=== PATIENT | male | born 1955 | race Caucasian/White ===

== ENCOUNTER 2025-06-27 13:18 | Inpatient (IN) | payer MEDICARE, OTHER ==
[2025-06-27] VITALS (7 sets, daily range): BP systolic 112–160; BP diastolic 73–96; TEMP 97.9–98.1; O2SAT 98–100
[~2025-06-27] VITALS: Ht 167.6 cm; Wt 78.9 kg
[2025-06-27] MEDS: IV NS 0.9% 500 ML BAG IV ONE (13:51)
[2025-06-27 14:25] LABS: CALCIUM, SERUM 8.8 mg/dL (8.5-10.1); CREATININE 2.0 mg/dL (0.6-1.3); SODIUM SERUM 136 mmol/L (136-145); UREA NITROGEN, BLOOD 32 mg/dL (7-18)
[2025-06-27 14:30] LABS: ASPARTATE AMINOTRANSFERASE 11 U/L (15-37); TOTAL PROTEIN, SERUM 8.2 g/dL (6.4-8.2)
[2025-06-27] MEDS ORDERED: ASPI-1169 PO (14:32)
[2025-06-27] MEDS ORDERED: BACL10TA PO (14:32)
[2025-06-27] MEDS ORDERED: ATOR40TA PO (14:32)
[2025-06-27] MEDS ORDERED: SENN-261 PO (14:32)
[2025-06-27] MEDS ORDERED: QUET50TA PO (14:32)
[2025-06-27] MEDS ORDERED: LIDO700A30 TP (14:32)
[2025-06-27] MEDS ORDERED: METF-442 PO (14:32)
[2025-06-27] MEDS ORDERED: LEVE750T10 PO (14:32)
[2025-06-27] MEDS ORDERED: THIA100T74 PO (14:32)
[2025-06-27] MEDS ORDERED: GABA-532 PO (14:32)
[2025-06-27] MEDS ORDERED: MELA3TAB41 PO (14:32)
[2025-06-27] MEDS ORDERED: GUAI100S9 PO (14:32)
[2025-06-27] MEDS ORDERED: ACET325T53 PO (14:32)
[2025-06-27] MEDS ORDERED: TAMS-12 PO (14:32)
[2025-06-27] MEDS ORDERED: FINA5TAB11 PO (14:32)
[2025-06-27] MEDS ORDERED: LOSA50TA39 PO (14:32)
[2025-06-27] MEDS: IV NS 0.9% 1,000 ML BAG IV ONE (14:52)
[2025-06-27 14:53] LABS: INR 0.99 (0.91-1.10)
[2025-06-27 14:58] LABS: LACTIC ACID 3.4 mmol/L (0.4-2.0)
[2025-06-27] MEDS: PIPERACILLIN /TAZOBACTAM 3.375 G in IV D5W 50 ML IV ONE (15:00)
[2025-06-27] MEDS: VANCOMYCIN 1 GM in IV D5W 250 ML IV ONE (15:30)
[2025-06-27 15:33] LABS: PLATELET COUNT (AUTO) 238 K/uL (150-450); RED BLOOD CELL COUNT(AUTO) 4.28 MIL/uL (4.5-6.0); RED CELL DISTRIBUTION WIDTH 15.4 % (11.5-15.0); WHITE BLOOD COUNT (AUTO) 8.3 K/uL (4.3-11.0)
[2025-06-27 16:01] LABS: APPEARANCE,URINE CLEAR (CLEAR); BLOOD, URINE Small Ery/uL (NEGATIVE); LEUKOCYTE ESTERASE ,URINE Trace (NEGATIVE); UGLUCOSE 500 MG/DL mg/dL (NEGATIVE)
[2025-06-27 16:02] LABS: NITRITE, URINE POSITIVE (NEGATIVE)
[2025-06-27 16:03] LABS: ADD URINE CULTURE YES
[2025-06-27] MEDS ORDERED: LIDOCAINE 5% (PATCH) 1 EA PATCH TP PRN (17:30)
[2025-06-27] MEDS ORDERED: DEXTROSE 50%-WATER 50 ML DISP.SYRIN IV PRN (17:30)
[2025-06-27] MEDS ORDERED: SENNOSIDES 8.6 MG TABLET PO PRN (17:30)
[2025-06-27] MEDS ORDERED: MAG HYDROX/AL HYDROX/SIMETH 30 ML UDC PO PRN (17:30)
[2025-06-27] MEDS ORDERED: GUAIFENESIN 300 MG/15 ML UDC PO PRN (17:30)
[2025-06-27] MEDS ORDERED: MAGNESIUM HYDROXIDE 30 ML UDC PO PRN (17:30)
[2025-06-27] MEDS ORDERED: ONDANSETRON HCL/PF 4 MG/2 ML VIAL IVP PRN (17:30)
[2025-06-27] MEDS ORDERED: Z GUARD REMEDY 4 OZ OINT TP PRN (17:30)
[2025-06-27] MEDS: IV NS 0.9% 1,000 ML IV SCH (18:14)
[2025-06-27] MEDS: BLOOD SUGAR DIAGNOSTIC 1 EACH STRIP VI SCH (18:23)
[2025-06-27] MEDS: CEFTRIAXONE 1 G in IV D5W 50 ML IV SCH (20:10)
[2025-06-27] MEDS: LEVETIRACETAM (500MG) 1,000 MG in IV NS 0.9% 90 ML IV ONE (21:30)
[2025-06-27] MEDS: TAMSULOSIN 0.4 MG CAP.SR.24H PO SCH (22:00)
[2025-06-27] MEDS ORDERED: LEVETIRACETAM (500MG) 500 MG/5 ML VIAL IV ONE (22:04)
[2025-06-27] MEDS: LORAZEPAM INJ 2 MG/ML VIAL IV PRN (22:18)
[2025-06-27 23:29] LABS: PLATELET COUNT (AUTO) 217 K/uL (150-450); RED BLOOD CELL COUNT(AUTO) 3.91 MIL/uL (4.5-6.0); RED CELL DISTRIBUTION WIDTH 15.2 % (11.5-15.0); WHITE BLOOD COUNT (AUTO) 9.3 K/uL (4.3-11.0)
[2025-06-27 23:40] LABS: CALCIUM, SERUM 7.9 mg/dL (8.5-10.1); CREATININE 1.9 mg/dL (0.6-1.3); PHOSPHORUS 2.9 mg/dL (2.5-4.9); SODIUM SERUM 140.0 mmol/L (136-145); UREA NITROGEN, BLOOD 26.0 mg/dL (7-18)
[2025-06-27] MEDS: *INSULIN REGULAR(HUMULIN R)HUM 100 UNIT/ML VIAL SQ PRN (23:45)
[2025-06-28] VITALS: BP 148/88; TEMP 98.8; O2SAT 99
[2025-06-28 04:00] VITALS: BP 139/70; TEMP 98.8; O2SAT 96
[2025-06-28] MEDS: INSULIN REGULAR, HUMAN 100 UNIT/ML 3 ML VIAL SQ PRN (06:31)
[2025-06-28 07:40] LABS: PLATELET COUNT (AUTO) 214 K/uL (150-450); RED BLOOD CELL COUNT(AUTO) 4.42 MIL/uL (4.5-6.0); RED CELL DISTRIBUTION WIDTH 15.1 % (11.5-15.0); WHITE BLOOD COUNT (AUTO) 9.8 K/uL (4.3-11.0)
[2025-06-28 08:00] VITALS: BP 172/81; TEMP 97.9; O2SAT 100
[2025-06-28 08:21] LABS: CALCIUM, SERUM 8.7 mg/dL (8.5-10.1); CREATININE 1.6 mg/dL (0.6-1.3); PHOSPHORUS 2.4 mg/dL (2.5-4.9); SODIUM SERUM 139.0 mmol/L (136-145); UREA NITROGEN, BLOOD 21.0 mg/dL (7-18)
[2025-06-28] MEDS ORDERED: LEVETIRACETAM (250 MG) 250 MG TABLET PO SCH (09:00)
[2025-06-28] MEDS: ASPIRIN 81 MG TAB.CHEW PO SCH (09:10)
[2025-06-28] MEDS: FINASTERIDE (5 MG) 5 MG TABLET PO SCH (09:10)
[2025-06-28] MEDS: LEVETIRACETAM (250 MG) 250 MG TABLET PO SCH (09:10)
[2025-06-28] MEDS: GABAPENTIN 100 MG CAPSULE PO SCH (09:10)
[2025-06-28] MEDS: QUETIAPINE FUMARATE 25 MG TABLET PO SCH (09:11)
[2025-06-28 11:00] VITALS: BP 161/90; TEMP 97.9; O2SAT 100
[2025-06-28 16:00] VITALS: BP 152/82; TEMP 99.1; O2SAT 100
[2025-06-28] MEDS: K PHOS NEUTRAL 250 MG TABLET PO ONE (16:46)
[2025-06-28 16:59] LABS: CREATININE, URINE 53.9 MG/DL (30.0-125.0); URINE SODIUM, RANDOM 151.0 mmol/l (40-220); URINE TOTAL PROTEIN 154.9 mg/dL (0-11.9)
[2025-06-28 20:00] VITALS: BP 163/107; TEMP 98.1; O2SAT 100
[2025-06-28] MEDS: LORAZEPAM INJ 2 MG/ML VIAL IV PRN (20:15)
[2025-06-29] VITALS (13 sets, daily range): BP systolic 131–175; BP diastolic 72–89; TEMP 98.2–98.6; O2SAT 93–99
[2025-06-29 06:58] LABS: PLATELET COUNT (AUTO) 217 K/uL (150-450); RED BLOOD CELL COUNT(AUTO) 4.04 MIL/uL (4.5-6.0); RED CELL DISTRIBUTION WIDTH 15.0 % (11.5-15.0); WHITE BLOOD COUNT (AUTO) 8.8 K/uL (4.3-11.0)
[2025-06-29 07:01] LABS: CREATINE KINASE, TOTAL 128.0 U/L (39-308)
[2025-06-29 07:20] LABS: ASPARTATE AMINOTRANSFERASE 13.0 U/L (15-37); CALCIUM, SERUM 8.6 mg/dL (8.5-10.1); CREATININE 1.3 mg/dL (0.6-1.3); PHOSPHORUS 2.7 mg/dL (2.5-4.9); SODIUM SERUM 139.0 mmol/L (136-145); TOTAL PROTEIN, SERUM 7.9 g/dL (6.4-8.2); UREA NITROGEN, BLOOD 20.0 mg/dL (7-18)
[2025-06-29] MEDS: LORAZEPAM INJ 2 MG/ML VIAL IV PRN ×2 (12:31)
[2025-06-29] MEDS: LEVETIRACETAM (500MG) 1,500 MG in IV NS 0.9% 85 ML IV SCH (15:26)
[2025-06-29] MEDS ORDERED: LEVETIRACETAM (250 MG) 250 MG TABLET PO SCH (17:00)
[2025-06-29] MEDS: IV NS 0.9% 1,000 ML IV PRN (17:41)
[2025-06-29] MEDS: LACOSAMIDE 200 MG in IV NS 0.9% 100 ML IV ONE (18:13)
[2025-06-29] MEDS ORDERED: LEVETIRACETAM (500MG) 1,500 MG in IV NS 0.9% 85 ML IV SCH (21:00)
[2025-06-29] MEDS: LACOSAMIDE 100 MG in IV NS 0.9% 50 ML IV SCH (21:50)
[2025-06-30] VITALS (17 sets, daily range): BP systolic 115–170; BP diastolic 66–94; TEMP 98.2–98.6; O2SAT 92–100
[2025-06-30 05:14] LABS: PLATELET COUNT (AUTO) 211 K/uL (150-450); RED BLOOD CELL COUNT(AUTO) 4.10 MIL/uL (4.5-6.0); RED CELL DISTRIBUTION WIDTH 15.5 % (11.5-15.0); WHITE BLOOD COUNT (AUTO) 8.1 K/uL (4.3-11.0)
[2025-06-30 05:16] LABS: CALCIUM, SERUM 8.7 mg/dL (8.5-10.1); CREATININE 1.5 mg/dL (0.6-1.3); SODIUM SERUM 142.0 mmol/L (136-145); UREA NITROGEN, BLOOD 17.0 mg/dL (7-18)
[2025-06-30 06:07] LABS: PTH, INTACT 46 pg/mL (15-65)
[2025-06-30] MEDS: LOSARTAN POTASSIUM 50 MG TABLET PO SCH (11:46)
[2025-06-30] MEDS: CLONIDINE HCL 0.1 MG TABLET PO PRN (17:41)
[2025-07-01 06:00] VITALS: BP 156/99; TEMP 98.6
[2025-07-01 07:22] LABS: PLATELET COUNT (AUTO) 219 K/uL (150-450); RED BLOOD CELL COUNT(AUTO) 3.88 MIL/uL (4.5-6.0); RED CELL DISTRIBUTION WIDTH 14.8 % (11.5-15.0); WHITE BLOOD COUNT (AUTO) 6.8 K/uL (4.3-11.0)
[2025-07-01 07:35] LABS: CALCIUM, SERUM 8.5 mg/dL (8.5-10.1); CREATININE 1.3 mg/dL (0.6-1.3); SODIUM SERUM 145.0 mmol/L (136-145); UREA NITROGEN, BLOOD 17.0 mg/dL (7-18)
[2025-07-01] MEDS: LACOSAMIDE 50 MG TABLET PO SCH (08:46)
[2025-07-01] MEDS: LEVETIRACETAM (250 MG) 250 MG TABLET PO SCH (08:48)
[2025-07-01] MEDS: ACETAMINOPHEN 325 MG TABLET PO PRN (10:39)
[2025-07-01] MEDS ORDERED: MEROPENEM 500 MG in IV NS 0.9% 50 ML IV SCH (21:00)
[2025-07-01] MEDS ORDERED: MEROPENEM 500 MG VIAL IV ONE (21:32)
[2025-07-01] MEDS: MEROPENEM 500 MG in IV NS 0.9% 50 ML IV SCH (21:49)
[2025-07-02] VITALS: BP 172/89; TEMP 97.6; O2SAT 97
[2025-07-02 04:00] VITALS: BP 144/82; TEMP 98.6; O2SAT 97
[2025-07-02] MEDS ORDERED: LEVE250T2 PO (09:10)
[2025-07-02] MEDS ORDERED: LACO50TA2 PO (09:10)
[2025-07-02] MEDS ORDERED: MERO500V23 IV (09:14)
[2025-07-02] MEDS: hydrALAZINE HCL IV 20 MG VIAL IV PRN (17:44)
[2025-07-02] MEDS: MEROPENEM 500 MG in IV NS 0.9% 50 ML IV SCH (17:44)
[2025-07-02 20:00] VITALS: BP 147/78; TEMP 98.1; O2SAT 96
[2025-07-03 14:55] VITALS: BP 190/105
== END 2025-07-03 15:34 | DRG 689 ==
LOC: ER 13:20 → MED 17:04 → TELE 22:39 → ICU 06-29 15:52 → TELE 06-30 15:07
PROVIDERS: ADMIT Internal Medicine; ATTEND Internal Medicine
DX: N39.0 Urinary tract infection, site not specified (principal); G93.41 Metabolic encephalopathy; N17.0 Acute kidney failure with tubular necrosis; Z16.12 Extended spectrum beta lactamase (ESBL) resistance; N40.1 Benign prostatic hyperplasia with lower urinary tract symptoms; Z79.82 Long term (current) use of aspirin; Z20.822 Contact with and (suspected) exposure to COVID-19; D64.9 Anemia, unspecified; K57.30 Diverticulosis of large intestine without perforation or abscess without bleeding; E83.89 Other disorders of mineral metabolism; Z79.84 Long term (current) use of oral hypoglycemic drugs; N13.8 Other obstructive and reflux uropathy; E11.42 Type 2 diabetes mellitus with diabetic polyneuropathy; G40.901 Epilepsy, unspecified, not intractable, with status epilepticus; R53.1 Weakness; R33.9 Retention of urine, unspecified; B96.20 Unspecified Escherichia coli [E. coli] as the cause of diseases classified elsewhere; I12.9 Hypertensive chronic kidney disease with stage 1 through stage 4 chronic kidney disease, or unspecified chronic kidney disease; E11.22 Type 2 diabetes mellitus with diabetic chronic kidney disease; N18.9 Chronic kidney disease, unspecified
CPT/HCPCS: 36415; 70450-TC; 71045-TC; 76770-TC; 80048-TC; 80053-TC; 80076-TC; 81001; 82550-TC; 82570-TC; 82962-TC; 83605-TC; 83735-TC; 83970; 84100-TC; 84155; 84165; 84300-TC; 84484-TC; 85025-TC; 85730-TC; 87040-TC; 87081-TC; 87086-TC; 87186-TC; 95819-TC; 97110-TC; 97116-TC; 97530-TC; A4223; A6403; G0378; J0360; J0696; J1815; J1953; J2060; J2185; J2543; J3373; J7030; J7040; J7060